=== PATIENT | female | born 1985 | race Caucasian/White ===

== ENCOUNTER 2017-05-31 21:43 | Emergency (ER) | payer BC, MEDICAID ==
[~2017-05-31] VITALS: Ht 165.1 cm; Wt 61.5 kg
[2017-05-31 21:45] VITALS: BP 94/65
[2017-05-31] MEDS ORDERED: ONDANSETRON 2MG/ML, 2ML ONE (22:11)
[2017-05-31] MEDS ORDERED: HYDROmorphone 1 MG/ML, 1ML ONE (22:11)
[2017-05-31] MEDS ORDERED: BUPIVACAINE/PF 0.5% ONE (22:20)
[2017-05-31] MEDS ORDERED: PROPOFOL 10 MG/ML, 20ML ONE (22:22)
[2017-05-31] MEDS ORDERED: SODIUM CHLORIDE 0.9% 1,000ML IVBOLUS ONE (22:30)
[2017-05-31] MEDS ORDERED: HYDROmorphone 1 MG/ML, 1ML IVPush PRN (22:30)
[2017-05-31] MEDS ORDERED: SODIUM CHLORIDE FLUSH 10ML SYR IVF ONE (22:30)
[2017-05-31] MEDS ORDERED: PROPOFOL 10 MG/ML, 20ML IVPush ONE (22:30)
[2017-05-31] MEDS ORDERED: ONDANSETRON 2MG/ML, 2ML IVPush ONE (22:30)
[2017-05-31] MEDS ORDERED: BUPIVACAINE/PF 0.5% INFIL ONE (22:30)
== END 2017-05-31 23:57 | disposition home or self-care (01) ==
LOC: ED 23:34
DX: S52.501A Unspecified fracture of the lower end of right radius, initial encounter for closed fracture (principal); S52.611A Displaced fracture of right ulna styloid process, initial encounter for closed fracture; S92.251A Displaced fracture of navicular [scaphoid] of right foot, initial encounter for closed fracture; G89.11 Acute pain due to trauma; W18.30XA Fall on same level, unspecified, initial encounter; Y93.89 Activity, other specified; Y92.488 Other paved roadways as the place of occurrence of the external cause; Y99.8 Other external cause status
CPT/HCPCS: 25605; 73100; 73110; 96361; 96374; 96375; 99152; 99153; 99285; J1170; J2405; J2704; J3490; J7030